=== PATIENT | male | born 1975 | race Caucasian/White ===

== ENCOUNTER 2019-06-23 18:13 | Emergency (ER) | payer BC, SELFPAY ==
[2019-06-23 18:15] VITALS: BP 154/83; PULSE 77; RESP 14; TEMP 36.7; O2SAT 100; BMI 24.0
--- NOTE | 2019-06-23 18:54 | RAD_ITS ---
STUDY: X-RAY CHEST REASON FOR EXAM: Male, 43 years old. Chest pain TECHNIQUE: Frontal view of the chest COMPARISON: None. FINDINGS: The lungs are clear. There are no pleural effusions. There is no pneumothorax. The heart is normal in size. The visualized osseous structures are within normal limits. RAD/Chest 1 View (Portable) IMPRESSION: No acute thoracic pathology. Electronically Signed: Zen Gordon, at 19:11 EDT Tel , Service support ,
--- NOTE | 2019-06-23 18:54 | CT_ITS ---
STUDY: CTA CHEST REASON FOR EXAM: Male, 43 years old. Left-sided pain RADIATION DOSAGE (If Supplied By Facility): CTDIvol = ( 14.31 ) mGy, DLP = ( 445.23 ) mGycm TECHNIQUE: The examination was performed with the intravenous administration of IV Isovue 300 75ML. Post-processing of the angiographic images was performed, with multiplanar reformation and 3D reconstruction. Individualized dose optimization techniques were used for this CT. COMPARISON: None. FINDINGS: There is no evidence of pulmonary and was. There is no evidence of thoracic aortic aneurysm or dissection. The heart and pericardium are within normal limits. There is mediastinal and left hilar lymphadenopathy noted. There is airspace opacity in the left lower lobe which is consistent with an infiltrate. The lungs are otherwise clear. There are no pleural effusions. There is no pneumothorax. There are no destructive osseous lesions. CT/CTA Chest W/WO Contrast IMPRESSION: No evidence of pulmonary embolus. No evidence of thoracic aortic aneurysm or dissection. Left lower lobe infiltrate with left hilar and mediastinal lymphadenopathy. Electronically Signed: Zen Gordon, at 20:09 EDT Tel , Service support ,
--- NOTE | 2019-06-23 18:54 | EKG12_ITS ---
Test Reason : PAIN OTHER Blood Pressure : / mmHG Vent. Rate : 060 BPM Atrial Rate : 060 BPM P-R Int : 146 ms QRS Dur : 086 ms QT Int : 382 ms P-R-T Axes : 050 036 042 degrees QTc Int : 382 ms Normal sinus rhythm Normal ECG Confirmed by DINORAH OBANDO, HAL ([id number]), clinical editor CRIS BRADSHAW ([id number]) on 06/25/2019 9:56:07 AM Referred By: Confirmed By:HAL COPELAND MD
--- NOTE | 2019-06-23 18:55 | CT_ITS ---
STUDY: CT ABDOMEN AND PELVIS WITHOUT CONTRAST REASON FOR EXAM: Male, 43 years old. Left-sided pain RADIATION DOSAGE (If Supplied By Facility): CTDIvol = ( 6.75 ) mGy, DLP = ( 335.77 ) mGycm TECHNIQUE: Transaxial images were obtained from the dome of the diaphragm to the symphysis pubis without oral contrast, and without intravenous contrast. Sagittal and coronal images were reconstructed. Individualized dose optimization techniques were used for this CT. COMPARISON: None. FINDINGS: Evaluation of the abdominal viscera is limited in the absence of intravenous contrast. Please see the CT of the chest report which is dictated separately. There are no calcified gallstones present. The liver demonstrates an unremarkable unenhanced appearance. The spleen is normal in size. The pancreas demonstrates an unremarkable unenhanced appearance. The adrenal glands are within normal limits. There are no renal or ureteral stones. There is no hydronephrosis. Normal visualized stomach. There is no bowel obstruction or inflammation. The appendix is visualized and appears normal. The aorta is normal in caliber. There is no abdominal or pelvic free air, free fluid, fluid collection or lymphadenopathy. There are no destructive osseous lesions. CT/Abdomen/Pelvis without Cont IMPRESSION: No acute abdominal or pelvic pathology demonstrated on this noncontrast CT. Electronically Signed: Zen Gordon, at 20:02 EDT Tel , Service support ,
[2019-06-23] MEDS: 0.9% Normal Saline 1,000 ML 150 ML IV (19:04)
--- NOTE | 2019-06-23 19:04 | ED.VIS.GEN ---
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 and began to stand up had exacerbation of this pain to where it was unbearable its worse when he moves takes a deep breath, he has no past history of IN PE or DVT no trauma his bowel and bladder habits been normal he is had no fever or cough he denies any past history, he is holding the left side of his flank planing of pain The indicates that as a child it is possible patient was in some type of an 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 Denies: Chills, Fever, Sweats Eyes: Denies: Visual changes - bilaterally, Diplopia ENT: Denies: Rhinorrhea, Sore throat Cardiovascular: Denies: Chest pain, Palpitations Respiratory: Denies: Dyspnea, Cough, Dyspnea on exertion Gastrointestinal: Denies: Abdominal pain, Nausea, Vomiting, Diarrhea, Melena, Hematochezia Genitourinary: Denies: Dysuria, Hematuria, Frequency Musculoskeletal: Denies: Back pain, Extremity Pain Skin: Denies: Rash, Wounds Neurological: Denies: Headache, Weakness, Numbness Physical Exam Vital Signs/Narrative: Vital Signs Temp Pulse Resp BP Pulse Ox 06/23/19 18:15 98.1 F 77 14 154/83 H 100 General: Well nourished, Well developed, No Acute Distress Head: Normocephalic, Atraumatic Eyes: Perrl, EOMI ENT: Moist mucous membranes, No rhinorrhea Neck: Supple, Nontender Cardiovascular: Regular rate, Regular rhythm, No murmurs Respiratory: No distress, CTA bilaterally, Chest nontender, - - He has a pain that crosses the left lower rib cage into the left upper abdomen there is no bruising contusion or skin breakdown, the lungs are clear the heart tones are unremarkable the abdomen actually soft the midline backs unremarkable is moving all 4 extremities are unremarkable pulses are symmetric bilaterally Abdomen: Soft, Nontender, Nondistended, Normal bowel sounds Back: Nontender, Normal Inspection Extremities: Nontender, No edema Skin: Normal color, No rash Neurological: Alert, Oriented x3, Cranial nerves II-XII grossly intact, Normal Strength, Normal Sensation Psychological: Normal affect, Normal Mood Diagnostic/Tx/Re-eval - Medical Decision Making The differential is rather extensive given all the above screening labs CT pain management Patient's EKG shows a sinus rhythm rate 60 no acute injury pattern appreciated intervals normal, the labs chest x-ray abdominal CT negative, CTA chest shows left lower lobe infiltrate with some adenopathy see those reports Given all the above discussed the patient is treated with oral Levaquin, external discharge home, he understands exact etiology of the above is unclear there is a variety of long differential he will follow-up with his outpatient providers and return for change in symptoms, he is comfortable this plan feels better Home stable Final impression Left flank pain, left lower lobe infiltrate possible pneumonia ED Disposition - Plan for ED Patient: Diagnosis: Left flank pain Instructions: PNEUMONIA (Adult) Prescriptions: Levofloxacin [Levaquin] 750 mg PO DAILY #7 tab Prescription Printed Naproxen [Naprosyn] 500 mg PO BID PRN #20 tab Prescription Printed Albuterol Inhaler [Ventolin Hfa] 1 - 2 puff INHALATION Q4H PRN PRN #1 inhaler PRN Reason: Wheezing Prescription Printed Referrals: Naseem Lucero MD [Primary Care Provider] -
[2019-06-23] MEDS: morphine 8 MG/ML Syringe IV (19:05)
[2019-06-23] MEDS: Ondansetron 4 MG/2 ML Vial IV (19:05)
[2019-06-23 19:12] LABS: Absolute Lymphocyte Count 2.09 X10^3/uL (0.83-4.51); Absolute Neutrophil Count 4.7 X10^3/uL (2.0-7.7); Basophil# 0.11 X10^3/uL; Basophil% 1.3 % (0-1); Eosinophil# 0.53 X10^3/uL; Eosinophils% 6.1 % (0-5); Hematocrit 46.5 % (40-54); Hemoglobin 15.4 g/dL (13.0-16.5); Lymphocyte # 2.09 X10^3/ul (4.0); Lymphocyte % 24.1 % (19-41); Mean Corp Hgb Conc 33.1 g/dL (32-36); Mean Corpuscular Hgb 30.9 pg (27.0-32.0); Mean Corpuscular Volume 93.2 fL (80-94); Mean Platelet Vol. 8.9 fl (6.2-12.0); Monocyte# 1.16 X10^3/uL; Monocyte% 13.4 % (0-10); NRBC Flagged by Analyzer 0 % (0-5); Neutrophil # 4.74 X10^3/uL (2.7-7.7); Neutrophil % 54.6 % (47-70); Platelet Count 218 K/mm3 (150-450); RBC Distribution Width SD 44.7 fl (35.1-43.9); Red Blood Count 4.99 M/mm3 (4.6-6.2); White Blood Count 8.7 K/mm3 (4.4-11.0)
[2019-06-23 19:30] LABS: Anion Gap 5 (5-15); BUN 18 mg/dL (7-18); BUN/Creat Ratio 13.6 RATIO (10-20); Calcium,Total 9.3 mg/dL (8.5-10.1); Chloride 106 mmol/L (98-107); Creatinine, Serum 1.32 mg/dL (0.70-1.30); EST Glomerular Filtration Rate 63 mL/min (>60); Est Glom Filt Rate - Afr Amer 76 mL/min (>60); Estimated Creatinine Clearance 77.65 ml/min; Glucose 81 mg/dL (74-106); Potassium 3.6 mmol/L (3.5-5.1); Sodium Level 140 mmol/L (136-145)
[2019-06-23] MEDS: Albuterol 2.5 MG/3 ML VIAL.NEB. INHALATION (20:34)
[2019-06-23 20:35] VITALS: PULSE 62; RESP 13
[2019-06-23] MEDS: Ketorolac 30 MG/ML Syringe IV (21:05)
[2019-06-23] MEDS: levoFLOXacin 750 MG Tablet PO (21:05)
[2019-06-23 21:30] VITALS: BP 138/76; PULSE 74; RESP 16; O2SAT 94
== END 2019-06-23 21:31 | disposition home or self-care (01) ==
PROVIDERS: Emergency Provider Emergency Medicine; Family Provider Family Medicine; PCP Family Medicine
DX: R10.9 Unspecified abdominal pain (principal); R91.8 Other nonspecific abnormal finding of lung field; F17.200 Nicotine dependence, unspecified, uncomplicated
CPT/HCPCS: 71045; 71275; 74176; 80048; 84484; 85025; 93005; 94640; 96361; 96374; 96375; 99284; J7030; J2405